=== PATIENT | male | born 1950 | race Caucasian/White ===

== ENCOUNTER → 2023-09-21 09:04 | Outpatient (REF) | payer MEDICARE, SELFPAY | LOC: HWRAD 09:04 | PROVIDERS: ATTENDING PHYSICIAN Internal Medicine Cardiovascular Disease; FAMILY PHYSICIAN Hospitalist | DX: R07.89 Other chest pain (principal); I77.810 Thoracic aortic ectasia | CPT/HCPCS: 71250 ==

== ENCOUNTER → 2024-05-22 08:57 | Outpatient (REF) | payer MEDICARE, SELFPAY | LOC: RAD 08:57 | PROVIDERS: ATTENDING PHYSICIAN Orthopaedic Surgery; FAMILY PHYSICIAN Hospitalist | DX: M75.101 Unspecified rotator cuff tear or rupture of right shoulder, not specified as traumatic (principal) | CPT/HCPCS: 76882 ==